=== PATIENT | female | born 1985 | race Caucasian/White ===

== ENCOUNTER 2025-04-11 15:00 | Emergency (ER) | payer SELFPAY ==
[~2025-04-11] VITALS: Ht 170.1 cm; Wt 125.6 kg
[2025-04-11 16:53] LABS: BILIRUBIN Negative (Negative); BLOOD Negative (Negative); CLARITY Cloudy (Clear); COLOR Yellow (Yellow); GLUCOSE Negative (Negative); KETONE Trace (Negative); LEUKO ESTERASE 1+ (Negative); NITRITE Negative (Negative); PH 5.5 (4.5-8.0); SPECIFIC GRAVITY 1.025 (1.001-1.030); UROBILINOGEN 0.2 E.U./dl (0.0-1.0)
[2025-04-11 17:01] LABS: BACTERIA 2+
[2025-04-11] MEDS ORDERED: MACROBID100 M1 PO (19:17)
[2025-04-11] MEDS ORDERED: Nitrofurantoin Monohydrate/N 100 MG CAP PO ONE (19:20)
== END 2025-04-11 19:26 | disposition home or self-care (01) ==
LOC: ED 15:00
PROVIDERS: Emergency Medicine
DX: N39.0 Urinary tract infection, site not specified (principal); Z88.0 Allergy status to penicillin

== ENCOUNTER 2025-04-18 12:54 | Emergency (ER) | payer OTHER ==
[~2025-04-18 12:54] MED LIST: MACROBID100 M1 PO
== END 2025-04-18 14:40 | disposition home or self-care (01) ==
LOC: ED 12:54
DX: S39.012A Strain of muscle, fascia and tendon of lower back, initial encounter (principal); Z88.0 Allergy status to penicillin; Z79.2 Long term (current) use of antibiotics; V89.2XXA Person injured in unspecified motor-vehicle accident, traffic, initial encounter; Y93.I9 Activity, other involving external motion; Y92.488 Other paved roadways as the place of occurrence of the external cause; Y99.8 Other external cause status